=== PATIENT | female | born 1980 | race Caucasian/White ===

== ENCOUNTER 2021-05-17 15:53 | Emergency (ER) | payer OTHER ==
[~2021-05-17] VITALS: Ht 165.1 cm; Wt 68.0 kg
[2021-05-17 16:01] VITALS: BP 136/89
[2021-05-17] MEDS ORDERED: FUROSEMIDE 20 M20 M1 PO (16:08)
[2021-05-17] MEDS ORDERED: KAPSPARGO SPRIN25 MG PO (16:09)
[2021-05-17] MEDS ORDERED: ADDERALL 10 MG10 MG PO (16:09)
[2021-05-17] MEDS ORDERED: SPIRONOLACTONE25 MG PO (16:09)
== END 2021-05-17 17:37 | disposition home or self-care (01) ==
LOC: ER 15:53
DX: H10.9 Unspecified conjunctivitis (principal); Z79.899 Other long term (current) drug therapy; Z88.2 Allergy status to sulfonamides; Z91.040 Latex allergy status